=== PATIENT | female | born 1940 | race Caucasian/White ===

== ENCOUNTER 2019-10-26 20:25 | Emergency (ER) | payer BC, MEDICARE ==
--- NOTE | 2019-10-26 21:01 | EDM.PDOC ---
ED HPI GENERAL MEDICAL PROBLEM - General Chief Complaint: General Stated Complaint: lightheaded, heat exposure Time Seen by Provider: 10/26/19 20:30 Source of Information: Reports: Patient History Limitations: Reports: No Limitations - History of Present Illness INITIAL COMMENTS - FREE TEXT/NARRATIVE: Peck weak after being out in the heat today Does drink some tea with caffeine Was out all day No syncope No N/V/D No chest pain No SOB No other complaints Onset: Gradual Duration: Hour(s):, Improving Location: Reports: Generalized - Related Data Allergies Allergy/AdvReac Type Severity Reaction Status Date / Time gluten Allergy Diarrhea Verified 10/26/19 20:34 Home Meds: Home Meds Aspirin [Silas Chewable Aspirin] 81 mg PO DAILY 08/27/14 [History] Flaxseed/Omega3,6,9/Fatty Acid [Flax Seed Oil 1,300 mg Softgel] 1,200 mg PO DAILY 08/27/14 [History] Multivitamin [Multi-Vitamin Daily] 1,000 mg PO DAILY 08/27/14 [History] Calcium Carbonate/Vitamin D3 [Calcium 600 + Vit D 200] 1 each PO BID 10/26/19 [ History] ED ROS GENERAL - Review of Systems Review Of Systems: See Below Constitutional: Reports: Weakness Respiratory: Reports: No Symptoms Cardiovascular: Reports: No Symptoms GI/Abdominal: Reports: No Symptoms Musculoskeletal: Reports: No Symptoms Neurological: Reports: No Symptoms ED EXAM, GENERAL - Physical Exam Exam: See Below Exam Limited By: No Limitations General Appearance: Alert, WD/WN, No Apparent Distress Eye Exam: Bilateral Eye: EOMI, PERRL Ears: Normal External Exam Nose: Normal Inspection Throat/Mouth: Normal Oropharynx Neck: Supple Respiratory/Chest: Lungs Clear Cardiovascular: Regular Rate, Rhythm, Other (cap refill < 3 sec) GI/Abdominal: Soft, Non-Tender Extremities: Normal Inspection, No Pedal Edema Neurological: Alert, Oriented, No Motor/Sensory Deficits Psychiatric: Normal Affect, Normal Mood Skin Exam: Warm, Dry Course - Vital Signs Last Recorded V/S: Last Vital Signs Temp 97.6 F 10/26/19 20:26 Pulse 73 10/26/19 20:26 Resp 20 10/26/19 20:26 BP 187/85 H 10/26/19 20:26 Pulse Ox 100 10/26/19 20:26 - Re-Assessments/Exams Free Text/Narrative Re-Assessment/Exam: 10/26/19 21:02 Pt stable in ER Departure - Departure Time of Disposition: 21:15 Disposition: Home, Self-Care 01 Clinical Impression: Heat exposure Qualifiers: Encounter type: initial encounter Qualified Code(s): T67.9XXA - Effect of heat and light, unspecified, initial encounter - Discharge Information *PRESCRIPTION DRUG MONITORING PROGRAM REVIEWED*: Not Applicable *COPY OF PRESCRIPTION DRUG MONITORING REPORT IN PATIENT HYACINTH: Not Applicable Instructions: Heat Exhaustion Additional Instructions: Encourage fluids Follow up in clinic for BP recheck Avoid heat exposure Sepsis Event Note (ED) - Evaluation Sepsis Screening Result: No Definite Risk - Focused Exam Vital Signs: Vital Signs Temp Pulse Resp BP Pulse Ox 10/26/19 20:26 97.6 F 73 20 187/85 H 100
[2019-10-26 21:02] VITALS: BP 174/81; PULSE 68
== END 2019-10-26 21:16 | disposition home or self-care (01) ==
LOC: LL.ED 20:25
DX: T67.9XXA Effect of heat and light, unspecified, initial encounter (principal); Z79.82 Long term (current) use of aspirin; Z91.018 Allergy to other foods
CPT/HCPCS: 99284

== ENCOUNTER → 2024-05-14 | Day surgery (SDC) | payer MEDICARE, OTHER ==
[~2024-05-14] MED LIST: Glycopyrrolate 0.2 MG/ML SDV IVPUSH ONE; Lidocaine 2% 5 ML SDV ONE; Midazolam 1 MG/ML 2 ML SDV ONE; Propofol 200 MG/20 ML SDV ONE; Sodium Chloride 0.9% 10 ML Syringe FLUSH PRN
[2024-05-14] MEDS: Lactated Ringers 1,000 ML IV SCH (12:35)
[2024-05-14 12:41] VITALS: BP 131/55; PULSE 65
== END ==
LOC: LL.SDS 11:27
PROVIDERS: ATTEND Surgery
DX: K51.40 Inflammatory polyps of colon without complications (principal); K29.50 Unspecified chronic gastritis without bleeding; K31.89 Other diseases of stomach and duodenum; D64.9 Anemia, unspecified; I10 Essential (primary) hypertension; E78.5 Hyperlipidemia, unspecified; K90.0 Celiac disease; E87.6 Hypokalemia; Z79.82 Long term (current) use of aspirin; Z79.899 Other long term (current) drug therapy
CPT/HCPCS: 00813; 99100; J1596; J2250; J2704; J3490; J7120